=== PATIENT | male | born 1950 | race Caucasian/White ===

== ENCOUNTER 2021-02-08 14:42 | Emergency (ER) | payer OTHER, MEDICARE, SELFPAY ==
[2021-02-08 14:42] VITALS: BP 149/74; PULSE 62; RESP 18; TEMP 36.6; O2SAT 100; BMI 18.8
[2021-02-08 16:43] LABS: Absolute Lymphocyte Count 1.47 X10^3/uL (0.83-4.51); Absolute Neutrophil Count 3.7 X10^3/uL (2.0-7.7); Basophil# 0.05 X10^3/uL; Basophil% 0.8 % (0-1); Eosinophil# 0.34 X10^3/uL; Eosinophils% 5.5 % (0-5); Hematocrit 44.1 % (40-54); Hemoglobin 14.2 g/dL (13.0-16.5); Lymphocyte # 1.47 X10^3/ul (0.83-4.51); Lymphocyte % 23.8 % (19-41); Mean Corp Hgb Conc 32.2 g/dL (32-36); Mean Corpuscular Hgb 29.6 pg (27.0-32.0); Mean Corpuscular Volume 92.1 fL (80-94); Monocyte# 0.59 X10^3/uL; Monocyte% 9.6 % (0-10); NRBC Flagged by Analyzer 0 % (0-5); Neutrophil # 3.69 X10^3/uL (2.7-7.7); Neutrophil % 59.8 % (47-70); Platelet Count 198 K/mm3 (150-450); RBC Distribution Width CV 13.3 % (11.6-14.6); RBC Distribution Width SD 45.7 fl (35.1-43.9); Red Blood Count 4.79 M/mm3 (4.6-6.2); White Blood Count 6.2 K/mm3 (4.4-11.0)
[2021-02-08 16:53] LABS: Anion Gap 3 (5-15); BUN 14 mg/dL (7-18); BUN/Creat Ratio 9.9 RATIO (10-20); Calcium,Total 9.1 mg/dL (8.5-10.1); Chloride 105 mmol/L (98-107); Creatinine, Serum 1.41 mg/dL (0.70-1.30); EST Glomerular Filtration Rate 53 mL/min (>60); Est Glom Filt Rate - Afr Amer 64 mL/min (>60); Estimated Creatinine Clearance 42.22 ml/min; Glucose 88 mg/dL (74-106); Potassium 4.5 mmol/L (3.5-5.1); Sodium Level 140 mmol/L (136-145)
[2021-02-08 17:41] VITALS: BP 169/86; PULSE 61; RESP 18; O2SAT 100
[2021-02-08 18:04] LABS: Bacteria 0 SEEN /hpf (None Seen); Mucous, Urine 0 SEEN /hpf (<or=2+); Squamous Epithelial Cells - UA 0 SEEN /hpf (0-5); White Blood Cells 0 SEEN /hpf (0-5)
[2021-02-08 18:15] LABS: Color, Urine Yellow (Yellow); Glucose, Dipstick Normal (Normal); Ketone-Dipstick Negative (Negative); Leukocyte Esterase-Dipstick Negative /ul (Negative); Nitrite-Dipstick Negative (Negative); Occult Blood-Urine 50 /ul (Negative); Protein-Dipstick Negative (Negative); Specific Gravity, Urine 1.015 (1.002-1.030); Urine Bilirubin Dipstick Negative (Negative); Urine Clarity Clear (Clear); Urine Urobilinogen Normal (Normal)
--- NOTE | 2021-02-08 18:22 | CT_ITS ---
STUDY: CT Abdomen And Pelvis W/O Contrast Injection 02/08/2021 7:04 PM REASON FOR EXAM: Male, 70 years old. Abdominal pain LLQ pain Individualized dose optimization techniques were used for this CT. COMPARISON: None. TECHNIQUE: CT Abdomen And Pelvis W/O Contrast Injection FINDINGS: There are atherosclerotic calcifications of visualized coronary arteries. Lower lobe pulmonary fibrosis with emphysematous changes. Normal liver. Normal gallbladder and extrahepatic biliary system. There are multiple benign calcified granulomata of the spleen. Normal pancreas. Normal bilateral adrenal glands. No acute findings of the right kidney. No acute findings of the left kidney. Normal visualized stomach. Normal small intestine. Stool throughout the colon. The appendix is visualized and appears normal. There are calcifications of the abdominal aorta. This is consistent for atherosclerotic disease. There is no abdominal aortic aneurysm. Normal inferior vena cava. Subcentimeter mesenteric lymph nodes. Urinary bladder wall has wall thickening. This can be related to a partially contractile state. However, a cystitis is not excluded. Urinalysis should be performed in an effort to exclude cystitis. There are prostatic seed implants. Degenerative findings of the hips. There is an umbilical hernia containing fat. There are diffuse degenerative changes of the visualized lumbar spine. IMPRESSION: (NOT LISTED IN ORDER OF SIGNIFICANCE) Urinary bladder wall has wall thickening. This can be related to a partially contractile state. However, a cystitis is not excluded. Urinalysis should be performed in an effort to exclude cystitis. Other findings as above. Electronically Signed: Rosales Ngo MD at 19:07 EDT , Service support , CT/Abdomen/Pelvis without Cont
--- NOTE | 2021-02-08 18:23 | EDS_ITS ---
HPI HPI - GI History of Present Illness Chief Complaint: Abd Pain Informant: patient Narrative Narrative: Intermittent mid to lower abdominal pain for past 3 weeks. Recent diarrhea. No fevers. No urinary symptoms. No nausea or vomiting. [facility], denies history of kidney [facility]. He states 6 months ago found some liver lesions, he had a follow-up ultrasound last week. States with probing from ultrasound pain did worsen. Colonoscopy 2 years ago with 1 polypectomy. No other acute findings. States lesion was benign. No history of diverticulitis. No history of kidney stones. Prior similar symptoms: No PFSH PFSH Medical History BPH (benign prostatic hyperplasia) Home Medications omeprazole 40 mg PO DAILY #30 cap 02/08/21 [Rx Last Taken Unknown] tamsulosin [Flomax] 0.4 mg PO QHS 02/08/21 [History Last Taken Unknown] Allergy/AdvReac Type Severity Reaction Status Date / Time No Known Allergies Allergy Verified 02/08/21 14:42 Surgical History History of tonsillectomy Hx of hernia repair Hx of right knee surgery Social History Smoking Status: Current every day smoker tobacco type: cigarettes ROS ROS ED Constitutional Constitutional ED: Denies chills, fever(s) or sweats Eyes Eyes: Denies change in vision ENT ENT ED: Denies dysphagia or sore throat Cardiovascular Cardiovascular: Denies chest pain, leg edema, palpitations or racing heartbeat Respiratory/Chest Respiratory/Chest: Denies cough, dyspnea or dyspnea on exertion Gastrointestinal Gastrointestinal: Reports abdominal pain and diarrhea; Denies nausea or vomiting Genitourinary Genitourinary ED: Denies dysuria, hematuria or urinary frequency Musculoskeletal Musculoskeletal: Denies back pain, extremity pain or neck pain Integumentary Denies rash or wounds Neurologic Neurologic: Denies headache(s), paresthesias or weakness EXAM Physical Exam Const Vital Signs: 02/08/21 14:42 02/08/21 17:41 Temperature 97.9 F Temperature Source Temporal Pulse Rate 62 61 Respiratory Rate 18 18 Blood Pressure 149/74 H 169/86 H Blood Pressure Mean 99 113 Pulse Ox 100 100 Oxygen Delivery Method Room Air Room Air Positive well nourished and well developed General Appearance ED: well developed and NAD HEENT Reports moist mucous membranes normocephalic and atraumatic Eyes PERRL, EOMs intact bilaterally and conjunctivae normal General Eye ED: Yes normal appearance of both eyes Neck no lymphadenopathy and supple General: Negative for tenderness Chest Wall Chest: Negative for tenderness Resp normal respiratory effort and normal air movement Effort and Inspection: symmetric chest movement; Negative for respiratory distress Cardio regular rate, regular rhythm and no murmurs Peripheral Pulses: pulses 2+ throughout GI normal to inspection, nondistended, normoactive bowel sounds GI Narrative: Tender to deep palpation left lower quadrant. No guarding or rebound. Negative Morales's or McBurney's tenderness. Palpation: Negative for guarding or rebound tenderness present Back/Spine no CVA tenderness and no thoracic nor lumbar tenderness Extremity normal to inspection General Extremety ED: Negative for edema or tenderness General Extremity: Negative for edema Neuro oriented x3 and no sensory deficits noted Sensorium / Orientation: awake and alert Skin no rashes or lesions noted and no wounds MDM MDM MDM Narrative Medical decision making narrative: Patient vital signs stable triage labs obtain CBC BMP noting creatinine 1.41. He has no known kidney injury per patient. Is given a liter of fluids. Lipase liver enzymes are added which was normal. Left lower quadrant tenderness on exam CT scan obtained negative for colitis. Did note thickening bladder wall with blood in the urine. No infection. He does have tobacco history. [facility] is [facility]. Discussed calling for follow-up with urology for further testing as an outpatient. Also given local urologist for follow-up if unable to get in with the [facility]. Continue oral fluids. All questions answered. Lab Data Attestation: I reviewed the patient's lab results. Labs: Laboratory Results - last 24 hr 02/08/21 02/08/21 02/08/21 16:26 16:26 16:26 WBC 6.2 RBC 4.79 Hgb 14.2 Hct 44.1 MCV 92.1 MCH 29.6 MCHC 32.2 RDW Std Deviation 45.7 H RDW Coeff of Cathi 13.3 Plt Count 198 MPV 11.0 Immature Gran % (Auto) 0.500 Neut % (Auto) 59.8 Lymph % (Auto) 23.8 Larue % (Auto) 9.6 Eos % (Auto) 5.5 H Baso % (Auto) 0.8 Absolute Neuts (auto) 3.7 Absolute Lymphs (auto) 1.47 Nucleated RBC % 0 Sodium 140 Potassium 4.5 Chloride 105 Carbon Dioxide 32.0 Anion Gap 3 L BUN 14 Creatinine 1.41 H Estim Creat Clear Calc 42.22 Est GFR (MDRD) Af Amer 64 Est GFR (MDRD) Non-Af 53 L BUN/Creatinine Ratio 9.9 L Glucose 88 Calcium 9.1 Total Bilirubin 0.40 Direct Bilirubin 0.11 AST 17 ALT 17 Alkaline Phosphatase 84 Total Protein 7.4 Albumin 3.4 Globulin 4.0 Lipase 85 Urine Color Urine Clarity Urine pH Ur Specific [place] Urine Protein Urine Glucose (UA) Urine Ketones Urine Occult Blood Urine Nitrite Urine Bilirubin Urine Urobilinogen Ur Leukocyte Esterase Urine RBC Urine WBC Ur Squamous Epith Cells Urine Bacteria Urine Mucus 02/08/21 17:50 WBC RBC Hgb Hct MCV MCH MCHC RDW Std Deviation RDW Coeff of Cathi Plt Count MPV Immature Gran % (Auto) Neut % (Auto) Lymph % (Auto) [place] % (Auto) Eos % (Auto) Baso % (Auto) Absolute Neuts (auto) Absolute Lymphs (auto) Nucleated RBC % Sodium Potassium Chloride Carbon Dioxide Anion Gap BUN Creatinine Estim Creat Clear Calc Est GFR (MDRD) Af Amer Est GFR (MDRD) Non-Af BUN/Creatinine Ratio Glucose Calcium Total Bilirubin Direct Bilirubin AST ALT Alkaline Phosphatase Total Protein Albumin Globulin Lipase Urine Color Yellow Urine Clarity Clear Urine pH 6.0 Ur Specific [place] 1.015 Urine Protein Negative Urine Glucose (UA) Normal Urine Ketones Negative Urine Occult Blood 50 H Urine Nitrite Negative Urine Bilirubin Negative Urine Urobilinogen Normal Ur Leukocyte Esterase Negative Urine RBC 0-5 SEEN Urine WBC 0 SEEN Ur Squamous Epith Cells 0 SEEN Urine Bacteria 0 SEEN Urine Mucus 0 SEEN Radiography Diagnostic Testing: Radiology Impression Abdomen/Pelvis CT 02/08/21 18:22 Discharge Plan Triage Chief Complaint: Abd Pain ED Provider: Chacorta Bailey Dx/Rx/DC Orders Clinical Impression: Abdominal pain, Bladder wall thickening, Hematuria, Acute kidney injury Instructions: Abdominal Pain, Acute Kidney Failure Dc, ED Hematuria Prescriptions: New omeprazole 40 mg capsule,delayed release(DR/EC) 40 mg PO DAILY Qty: 30 RF: 0 No Action tamsulosin [Flomax] 0.4 mg Capsule 0.4 mg PO QHS RF: 0 Primary Care Provider: [facility] Doctor,Out of Referrals: Cristofer Riojas MD [STAFF PHYSICIAN] - 1 Week [facility] Doctor,Out of [Primary Care Provider] - Activity Restrictions/Additional Instructions: Thickened bladder wall on CAT scan. Blood in the urine. Need to follow-up with urology for further testing. Call your [place] doctor or Dr. iRojas. Take medication as prescribed. Cr 1.41 today. follow up with your doctor to recheck blood work. Disposition Disposition: Home, Self Care
[2021-02-08 18:37] LABS: Red Blood Cells-Urine 0-5 SEEN /hpf (0-5)
[2021-02-08] MEDS: 0.9% Normal Saline 1,000 ML 1000 ML IV (18:40)
[2021-02-08 19:10] LABS: AST(SGOT) 17 U/L (15-37); Alanine Aminotransfer ALT/SGPT 17 U/L (16-61); Albumin, Serum 3.4 g/dL (3.2-5.0); Alkaline Phosphatase 84 U/L (45-117); Bilirubin, Direct 0.11 mg/dL (0.00-0.30); Lipase 85 U/L (73-393); Protein, Total 7.4 g/dL (6.4-8.2)
[2021-02-08 19:55] VITALS: PULSE 78; RESP 18; O2SAT 98
== END 2021-02-08 19:56 | disposition home or self-care (01) ==
PROVIDERS: Emergency Provider Emergency Medicine
DX: R10.32 Left lower quadrant pain (principal); R31.9 Hematuria, unspecified; R93.41 Abnormal radiologic findings on diagnostic imaging of renal pelvis, ureter, or bladder; N40.0 Benign prostatic hyperplasia without lower urinary tract symptoms; F17.210 Nicotine dependence, cigarettes, uncomplicated; Z79.899 Other long term (current) drug therapy
CPT/HCPCS: 74176; 80048; 80076; 81001; 83690; 85025; 96360; 99283; J7030; A4216